=== PATIENT | female | born 1970 | race African-American/Black ===

== ENCOUNTER 2018-02-02 20:22 | Emergency (ER) | payer SELFPAY ==
[~2018-02-02] VITALS: Ht 172.7 cm; Wt 68.0 kg
[2018-02-02] MEDS ORDERED: MAGNESIUM/ALUMINUM HYDROXIDE/SIMETHICONE 30ML UDC PO STA (22:57)
[2018-02-02] MEDS ORDERED: KETOROLAC 30MG/ML VIAL IV STA (22:57)
[2018-02-02] MEDS ORDERED: SODIUM CHLORIDE 0.9% 1,000 ML IV ONE (22:57)
[2018-02-02] MEDS ORDERED: ONDANSETRON HCL 4MG/2ML INJ IV STA (22:57)
[2018-02-02 23:17] LABS: BASOPHILS % 0.8 % (0.0-2.0); EOSINOPHILS % 0.1 % (0.0-5.0); HEMATOCRIT. 33.7 % (36.0-48.0); HEMOGLOBIN. 10.8 g/dL (12.0-16.0); LYMPHOCYTES % 12.3 % (20.0-50.0); MEAN CORPUSCULAR HEMOGLOBIN 24.7 pg (28.0-32.0); MEAN CORPUSCULAR VOLUME 76.9 fL (81.0-99.0); MEAN PLATELET VOLUME 7.8 fl (7.4-10.4); MONOCYTES % 3.9 % (2.0-8.0); NEUTROPHILS % 82.9 % (40.0-76.0); PLATELET 264 x1000/uL (130-400); RED BLOOD CELL COUNT 4.38 mill/uL (4.2-5.4); RED CELL DISTRIBUTION WIDTH 16.5 % (11.6-14.6)
[2018-02-02 23:25] LABS: CHLORIDE 104 mEq/L (98-107)
[2018-02-02 23:30] LABS: ETHANOL BLOOD < 10 mg/dL
[2018-02-03 01:25] LABS: CLARITY URINE CLEAR (CLEAR); COLOR URINE YELLOW (YELLOW); KETONES URINE NEGATIVE (NEGATIVE); LEUKOCYTE ESTERASE URINE 1+ (NEGATIVE); NITRITE URINE NEGATIVE (NEGATIVE); OCCULT BLOOD URINE NEGATIVE (NEGATIVE); PH URINE 6.5 (4.5-8.0); PROTEIN URINE NEGATIVE (NEGATIVE); SPECIFIC GRAVITY URINE 1.009 (1.005-1.030); UROBILINOGEN URINE 0.2 E.U./dL (0.2-1.0)
[2018-02-03] MEDS ORDERED: NITROFURANTOIN 100MG M/M CAPSULE PO ONE (03:00)
[2018-02-03 05:46] VITALS: BP 157/97
== END 2018-02-03 06:54 | disposition home or self-care (01) ==
LOC: ER 20:36
DX: N30.00 Acute cystitis without hematuria (principal); F17.200 Nicotine dependence, unspecified, uncomplicated; Z98.890 Other specified postprocedural states; Z88.2 Allergy status to sulfonamides
CPT/HCPCS: 36415; 74176; 80053; 81003; 81025; 83690; 85025; 96361; 96374; 96375; 99284; G0482; J1885; J2405; J7030